=== PATIENT | female | born 1990 | race Caucasian/White ===

== ENCOUNTER → 2016-05-24 | Outpatient (CLI) | payer OTHER ==
[2016-05-23 09:17] LABS: AUTOMATED NEUTROPHIL # 2.5 TH/MM3 (1.8-7.7); BASOPHIL % 0.4 % (0.0-2.0); EOSINOPHIL # 0.1 TH/MM3 (0-0.4); EOSINOPHIL % 1.3 % (0.0-4.0); LYMPH % 42.4 % (9.0-44.0); LYMPHOCYTE # 2.1 TH/MM3 (1.0-4.8); MEAN CELL VOLUME 75.9 FL (80.0-100.0); MEAN CORPUSCULAR HEMOGLOBIN 24.4 PG (27.0-34.0); MEAN CORPUSCULAR HGB CONC 32.2 % (32.0-36.0); NEUT % 48.9 % (16.0-70.0); PLATELET COUNT 219 TH/MM3 (150-450); RED BLOOD COUNT 5.13 MIL/MM3 (4.00-5.30); RED CELL DISTRIBUTION WIDTH 13.3 % (11.6-17.2); WHITE BLOOD COUNT 5.1 TH/MM3 (4.0-11.0)
[2016-05-23 09:18] LABS: HEMO FLAGS AUTO DIFF
[2016-05-23 09:50] LABS: SCAN/DIFF AUTO DIFF CONFIRMED
[2016-05-23 09:54] LABS: BACTERIA, URINE FEW /hpf; BLOOD, URINE NEG (NEG); GLUCOSE,URINE NEG (NEG); KETONE, URINE NEG (NEG); MUCUS URINE FEW /lpf (OCC); NITRITE,URINE NEG (NEG); SQUAMOUS EPITHELIAL CELL URINE 3 /hpf (0-5); URINE COLOR YELLOW (YELLW/STRAW)
[2016-05-23 09:55] LABS: COMMENT (UR) CULT NOT INDICATED; CULTURE IF INDICATED CULT NOT INDICATED
[2016-05-23 10:20] LABS: ANION GAP 5 MEQ/L (5-15); AST (GOT) 10 U/L (15-37); BICARBONATE 26.3 MEQ/L (21.0-32.0); BLOOD UREA NITROGEN 12 MG/DL (7-18); CHLORIDE 108 MEQ/L (98-107); GLOMERULAR FILTRATION RATE 106 ML/MIN (>89); GLUCOSE,FASTING 90 MG/DL (74-99); MAGNESIUM 2.2 MG/DL (1.5-2.5); POTASSIUM 4.1 MEQ/L (3.5-5.1); SODIUM (NA) 139 MEQ/L (136-145)
[2016-05-23 10:46] LABS: ALKALINE PHOSPHATASE 94 U/L (45-117); ALT (GPT) 28 U/L (10-53); FERRITIN 39 NG/ML (8-252); FREE T3 2.79 PG/ML (2.18-3.98); FREE T4 1.22 NG/DL (0.76-1.46); HDL CHOLESTEROL 54.1 MG/DL (40.0-60.0); LDL CHOLESTEROL 72 MG/DL (0-99); TOTAL BILIRUBIN ADULT 0.4 MG/DL (0.2-1.0); TRANSFERRIN IRON PROFILE 305 MG/DL (200-360)
[~2016-05-24] MED LIST: PROT40TA PO; SCOP1PAT2 T-DERMAL; ZOFR4TAB PO
== END ==
LOC: OLAB 05-23 08:06
PROVIDERS: ATTEND Surgery
DX: E66.01 Morbid (severe) obesity due to excess calories (principal)
CPT/HCPCS: 80053; 80061; 81001; 82306; 82607; 82728; 82746; 83540; 83550; 83735; 83970; 84100; 84439; 84443; 84481; 84590; 85025; 87338

== ENCOUNTER → 2016-06-22 | Day surgery (SDC) | payer OTHER ==
[~2016-06-22] MED LIST changes: +LACTATED RINGER'S 1,000 ML BAG IV ONE; +PROPOFOL 500 MG/50 ML BTL IV ONE
== END | disposition home or self-care (01) ==
LOC: ESDC 06:43
PROVIDERS: ATTEND Surgery
DX: K21.9 Gastro-esophageal reflux disease without esophagitis (principal); E66.01 Morbid (severe) obesity due to excess calories; K29.50 Unspecified chronic gastritis without bleeding
CPT/HCPCS: 00740; 43239; 88305; 88312; J3010; J7120

== ENCOUNTER → 2016-07-06 | Outpatient (CLI) | payer OTHER ==
[~2016-07-06] MED LIST changes: -LACTATED RINGER'S 1,000 ML BAG IV ONE; -PROPOFOL 500 MG/50 ML BTL IV ONE
[2016-07-06 11:47] LABS: AUTOMATED NEUTROPHIL # 1.9 TH/MM3 (1.8-7.7); BASOPHIL % 0.3 % (0.0-2.0); EOSINOPHIL # 0.2 TH/MM3 (0-0.4); EOSINOPHIL % 3.3 % (0.0-4.0); HEMATOCRIT 40.1 % (35.0-46.0); LYMPH % 49.4 % (9.0-44.0); LYMPHOCYTE # 2.4 TH/MM3 (1.0-4.8); MEAN CELL VOLUME 75.2 FL (80.0-100.0); MEAN CORPUSCULAR HEMOGLOBIN 24.2 PG (27.0-34.0); MEAN CORPUSCULAR HGB CONC 32.2 % (32.0-36.0); MONO % 6.8 % (0.0-8.0); NEUT % 40.2 % (16.0-70.0); PLATELET COUNT 195 TH/MM3 (150-450); RED BLOOD COUNT 5.33 MIL/MM3 (4.00-5.30); RED CELL DISTRIBUTION WIDTH 14.2 % (11.6-17.2); WHITE BLOOD COUNT 4.8 TH/MM3 (4.0-11.0)
[2016-07-06 11:49] LABS: HEMO FLAGS AUTO DIFF
[2016-07-06 11:53] LABS: PROTHROMBIN TIME - PATIENT 10.8 SEC (9.8-11.6)
[2016-07-06 12:03] LABS: ANION GAP 7 MEQ/L (5-15); BICARBONATE 28.9 MEQ/L (21.0-32.0); BLOOD UREA NITROGEN 14 MG/DL (7-18); CHLORIDE 105 MEQ/L (98-107); GLOMERULAR FILTRATION RATE 103 ML/MIN (>89); POTASSIUM 4.3 MEQ/L (3.5-5.1); SODIUM (NA) 141 MEQ/L (136-145)
[2016-07-06 12:14] LABS: BHCG SCREEN QUALITATIVE LESS THAN 1 MIU/ML (0-5)
[2016-07-06 12:45] LABS: SCAN/DIFF AUTO DIFF CONFIRMED
== END ==
LOC: ELAB 09:23
PROVIDERS: ATTEND Surgery
DX: Z01.818 Encounter for other preprocedural examination (principal)
CPT/HCPCS: 36415; 80048; 84703; 85025; 85610

== ENCOUNTER 2016-07-18 15:06 | Inpatient (IN) | payer OTHER ==
[~2016-07-18] VITALS: Ht 170.2 cm; Wt 137.7 kg
[2016-07-19] MEDS ORDERED: ONDANSETRON HCL 4 MG/2 ML VIAL IV PUSH SCH (06:15)
[2016-07-19] MEDS ORDERED: ceFAZolin 2 GM PREMIX 50 ML IV SCH (06:15)
[2016-07-19] MEDS ORDERED: APREPITANT 40 MG CAP PO SCH (06:15)
[2016-07-19] MEDS ORDERED: metroNIDAZOLE 500 MG INJ 100 ML IV SCH (06:15)
[2016-07-19] MEDS ORDERED: SCOPOLAMINE 1.5 MG PATCH T-DERMAL SCH (06:15)
[2016-07-19] MEDS ORDERED: ACETAMINOPHEN 1000 MG/100 ML VIAL IV SCH (06:15)
[2016-07-19 06:23] VITALS: BP 138/83; PULSE 74; RESP 16; TEMP 98.8; O2SAT 97
[2016-07-19] MEDS ORDERED: METOPROLOL TARTRATE 25 MG TAB PO PRN (06:30)
[2016-07-19] MEDS ORDERED: INSULIN HUMAN REGULAR 1,000 UNITS/10 ML VIAL SQ PRN (06:30)
[2016-07-19] MEDS ORDERED: BUPIVACAINE/EPINEPHRINE 0.25% 50 ML VIAL ONE (07:01)
[2016-07-19] MEDS ORDERED: FAMOTIDINE 20 MG/2 ML VIAL ONE (07:07)
[2016-07-19] MEDS ORDERED: SODIUM CHLORID 0.9% 500 ML IV SCH (07:30)
[2016-07-19] MEDS ORDERED: LACTATED RINGER'S 1000 ML IV SCH (07:30)
[2016-07-19] MEDS ORDERED: METHYLENE BLUE 100 MG/10 ML VIAL OTHER ONE (08:02)
[2016-07-19] MEDS ORDERED: BUPIVACAINE/EPINEPHRINE 0.25% PF 30 ML VIAL INFIL ONE (08:02)
[2016-07-19] MEDS ORDERED: diphenhydrAMINE HCL 50 MG/ML VIAL IV PRN (09:15)
[2016-07-19] MEDS ORDERED: ACETAMINOPHEN 1000 MG/100 ML VIAL IV PRN (09:15)
[2016-07-19] MEDS ORDERED: ENALAPRILAT 1.25 MG/ML VIAL IV PUSH PRN (09:15)
[2016-07-19] MEDS ORDERED: ONDANSETRON HCL 4 MG/2 ML VIAL IV PRN (09:15)
[2016-07-19] MEDS ORDERED: NALOXONE HCL 0.4 MG/ML AMP IV PRN (09:15)
[2016-07-19] MEDS ORDERED: diphenhydrAMINE HCL ELIXIR 12.5 MG/5 ML CUP PO PRN (09:15)
[2016-07-19] MEDS ORDERED: MORPHINE SULFATE 30 MG/30 ML PCA IV SCH (09:15)
[2016-07-19] MEDS ORDERED: SODIUM CHLORIDE 0.9% FLUSH 10 ML FLUSH IV FLUSH PRN (09:15)
[2016-07-19] MEDS ORDERED: ACETAMINOPHEN 325MG/HYDROcodone 7.5MG/15ML UDC PO PRN (09:15)
[2016-07-19] MEDS ORDERED: Post-op Orders (for Pharmacy) MISC XX ONE (09:19)
[2016-07-19] MEDS ORDERED: MIDAZOLAM HCL 2 MG/2 ML VIAL ONE (09:22)
[2016-07-19] MEDS ORDERED: fentaNYL CITRATE 250 MCG/5 ML AMP ONE (09:23)
[2016-07-19] MEDS ORDERED: *morphine SULFATE 8 MG/ML PERIprocedure ONLY ONE ×2 (09:37→09:52)
[2016-07-19] MEDS: D5-1/2 NS + KCL 20 MEQ INJ 1,000 ML IV SCH ×4 (10:00→22:14)
[2016-07-19] MEDS ORDERED: *HYDROmorphone PF 1 MG VIAL PERIprocedural Use ONLY ONE (10:12)
[2016-07-19] MEDS ORDERED: LACTATED RINGER'S 1000 ML INJ 1,000 ML IV ONE (10:56)
[2016-07-19] MEDS ORDERED: PROPOFOL 200 MG/20 ML AMP IV ONE (10:56)
[2016-07-19] MEDS ORDERED: NEOSTIGMINE 3 MG/3 ML SYR IV ONE (10:56)
[2016-07-19] MEDS: METOCLOPRAMIDE HCL 10 MG/2 ML VIAL IVS SCH ×3 (11:13→22:13)
[2016-07-19] MEDS: RESP: ALBUTEROL 2.5 MG/3 ML NEB (SCH) INH ×4 (12:00→23:29)
[2016-07-19] MEDS: ENOXAPARIN SODIUM 40 MG/0.4 ML SYRINGE SQ SCH (13:05)
[2016-07-19] MEDS: ONDANSETRON HCL 4 MG/2 ML VIAL IV PRN ×2 (13:59→19:52)
[2016-07-19] MEDS: PCA - TOTAL MG MORPHINE DELIVERED PER SHIFT SCH ×2 (14:00→19:53)
[2016-07-19] MEDS: metroNIDAZOLE 500 MG INJ 100 ML IV SCH ×2 (14:01→22:12)
[2016-07-19 16:00] VITALS: BP 122/72; PULSE 60; RESP 17; TEMP 96; O2SAT 99
[2016-07-19 18:00] VITALS: O2SAT 95
[2016-07-19] MEDS: SODIUM CHLORIDE 0.9% FLUSH 10 ML FLUSH IV FLUSH SCH (19:53)
[2016-07-19 20:00] VITALS: BP 125/84; PULSE 78; RESP 17; TEMP 96.8; O2SAT 97
[2016-07-19 21:08] VITALS: O2SAT 96
[2016-07-19 23:56] VITALS: BP 126/77; PULSE 63; RESP 18; TEMP 97.4; O2SAT 98
[2016-07-20] MEDS: ONDANSETRON HCL 4 MG/2 ML VIAL IV PRN ×5 (02:46→18:30)
[2016-07-20] MEDS: D5-1/2 NS + KCL 20 MEQ INJ 1,000 ML IV SCH ×4 (03:00→16:46)
[2016-07-20] MEDS: RESP: ALBUTEROL 2.5 MG/3 ML NEB (SCH) INH ×6 (03:59→23:17)
[2016-07-20 04:13] VITALS: BP 125/66; PULSE 62; RESP 20; TEMP 97.6; O2SAT 96
[2016-07-20] MEDS: METOCLOPRAMIDE HCL 10 MG/2 ML VIAL IVS SCH (04:39)
[2016-07-20] MEDS: metroNIDAZOLE 500 MG INJ 100 ML IV SCH (04:40)
[2016-07-20] MEDS: PCA - TOTAL MG MORPHINE DELIVERED PER SHIFT SCH ×3 (04:40→21:29)
[2016-07-20 05:34] LABS: AUTOMATED NEUTROPHIL # 6.5 TH/MM3 (1.8-7.7); BASOPHIL % 0.1 % (0.0-2.0); EOSINOPHIL % 0.1 % (0.0-4.0); HEMATOCRIT 35.3 % (35.0-46.0); HEMO FLAGS DIFF FINAL; LYMPH % 18.7 % (9.0-44.0); LYMPHOCYTE # 1.6 TH/MM3 (1.0-4.8); MEAN CELL VOLUME 75.2 FL (80.0-100.0); MEAN CORPUSCULAR HEMOGLOBIN 25.3 PG (27.0-34.0); MEAN CORPUSCULAR HGB CONC 33.6 % (32.0-36.0); MONO % 6.8 % (0.0-8.0); NEUT % 74.3 % (16.0-70.0); PLATELET COUNT 181 TH/MM3 (150-450); RED BLOOD COUNT 4.69 MIL/MM3 (4.00-5.30); RED CELL DISTRIBUTION WIDTH 14.3 % (11.6-17.2); WHITE BLOOD COUNT 8.8 TH/MM3 (4.0-11.0)
[2016-07-20 06:00] LABS: BICARBONATE 24.8 MEQ/L (21.0-32.0); MAGNESIUM 2.4 MG/DL (1.5-2.5)
[2016-07-20 08:00] VITALS: BP 129/78; PULSE 74; RESP 17; TEMP 97.2; O2SAT 97
[2016-07-20] MEDS: PANTOPRAZOLE SODIUM 40 MG VIAL IVP SCH (08:29)
[2016-07-20] MEDS: ACETAMINOPHEN 325MG/HYDROcodone 7.5MG/15ML UDC PO PRN ×2 (08:30→15:23)
[2016-07-20] MEDS: SODIUM CHLORIDE 0.9% FLUSH 10 ML FLUSH IV FLUSH SCH ×2 (08:39→21:00)
[2016-07-20] MEDS: PANTOPRAZOLE SOD 40 MG DELAYED RELEASE TAB PO SCH (08:39)
[2016-07-20 09:23] VITALS: O2SAT 96
[2016-07-20] MEDS: METOCLOPRAMIDE HCL 10 MG/2 ML VIAL IVS PRN ×3 (09:33→21:30)
--- NOTE | 2016-07-20 12:11 | HHI.PR ---
Subjective Subjective Notes 25 yo female POD#1 VSG still complains of increased nausea, though states it has improved since discontinuing IV pain meds Objective Vitals/I&O Vital Signs Date Time Temp Pulse Resp B/P Pulse Ox O2 Delivery O2 Flow Rate FiO2 07/20/16 09:23 96 21 07/20/16 08:00 97.2 74 17 129/78 07/19/16 18:00 Nasal Cannula 07/19/16 13:00 2 Labs Laboratory Tests Test 07/20/16 04:24 White Blood Count 8.8 Red Blood Count 4.69 Hemoglobin 11.9 Hematocrit 35.3 Mean Corpuscular Volume 75.2 Mean Corpuscular Hemoglobin 25.3 Mean Corpuscular Hemoglobin 33.6 Concent Red Cell Distribution Width 14.3 Platelet Count 181 Mean Platelet Volume 9.2 Neutrophils (%) (Auto) 74.3 Lymphocytes (%) (Auto) 18.7 Monocytes (%) (Auto) 6.8 Eosinophils (%) (Auto) 0.1 Basophils (%) (Auto) 0.1 Neutrophils # (Auto) 6.5 Lymphocytes # (Auto) 1.6 Monocytes # (Auto) 0.6 Eosinophils # (Auto) 0.0 Basophils # (Auto) 0.0 CBC Comment DIFF FINAL Differential Comment Sodium Level 140 Potassium Level 4.0 Chloride Level 110 Carbon Dioxide Level 24.8 Anion Gap 5 Blood Urea Nitrogen 5 Creatinine 0.57 Estimat Glomerular Filtration 128 Rate Random Glucose 127 Calcium Level 8.3 Magnesium Level 2.4 Cardiovascular: Regular Lungs: Clear Abdomen: Non-distended, Post-op tenderness, BS normal Extremities: No edema, SCD's on Narrative Exam Surgical incision sites clean and dry with steri strips intact. Mild tenderness to incision located to the right of the umbilicus A/P Problem List: (1) Hypertension (2) Obesity Assessment and Plan Continue to increase fluids as tolerated to goal of 60ml every 30 min Continue with frequent ambulation The exam, history, and the medical decision-making described in the above note were completed with the assistance of the mid-level provider. I reviewed and agree with the findings presented. I attest that I had a [id number] encounter with the patient on the same day, and personally performed and documented my assessment and findings in the medical record. Discharge Planning Plan for discharge this evening if patient can tolerate at least 60ml of fluids every 30 mins. Otherwise discharge home tomorrow. Patient to follow up at the office in 1 week Problem Qualifiers (1) Hypertension: Qualified Code: I10 - Essential hypertension (2) Obesity: Isa Munoz Jul 20, 2016 12:11 Winston Carrasquillo MD Aug 16, 2016 13:17
[2016-07-20] MEDS: ENOXAPARIN SODIUM 40 MG/0.4 ML SYRINGE SQ SCH (12:47)
[2016-07-20 16:00] VITALS: BP 133/77; PULSE 82; RESP 16; TEMP 97.9; O2SAT 96
[2016-07-20 20:00] VITALS: BP 119/58; PULSE 81; RESP 17; TEMP 98.5; O2SAT 96
[2016-07-21] VITALS: BP_SYST 106; BP_SYST 110; BP_DIAS 59; BP_DIAS 60; PULSE 69; PULSE 76; RESP 17; TEMP 98; TEMP 98.1; O2SAT 96; O2SAT 99
[2016-07-21] MEDS: ONDANSETRON HCL 4 MG/2 ML VIAL IV PRN ×2 (02:07→08:14)
[2016-07-21] MEDS: RESP: ALBUTEROL 2.5 MG/3 ML NEB (SCH) INH ×2 (02:48→07:32)
[2016-07-21] MEDS: D5-1/2 NS + KCL 20 MEQ INJ 1,000 ML IV SCH ×3 (03:00→11:00)
[2016-07-21] MEDS: METOCLOPRAMIDE HCL 10 MG/2 ML VIAL IVS PRN ×2 (04:41→10:20)
[2016-07-21] MEDS: PCA - TOTAL MG MORPHINE DELIVERED PER SHIFT SCH (05:11)
[2016-07-21 08:00] VITALS: BP 125/79; PULSE 79; RESP 14; TEMP 99.2; O2SAT 97
[2016-07-21] MEDS: PANTOPRAZOLE SOD 40 MG DELAYED RELEASE TAB PO SCH (08:14)
[2016-07-21] MEDS: SODIUM CHLORIDE 0.9% FLUSH 10 ML FLUSH IV FLUSH SCH (08:14)
[2016-07-21] MEDS: PANTOPRAZOLE SODIUM 40 MG VIAL IVP SCH (08:15)
[2016-07-21 12:00] VITALS: BP 135/94; PULSE 72; RESP 16; TEMP 98.3; O2SAT 95
--- NOTE | 2016-07-21 12:56 | HHI.PR ---
Subjective Subjective Notes 25 yo female POD#2 VSG. Sitting up in bed Feeling better but still has moderate nausea Objective Vitals/I&O Vital Signs Date Time Temp Pulse Resp B/P Pulse Ox O2 Delivery O2 Flow Rate FiO2 07/21/16 12:00 98.3 72 16 135/94 95 07/21/16 08:00 99.2 79 14 125/79 97 07/21/16 05:11 14 07/21/16 00:00 98.0 76 17 110/60 96 07/21/16 00:00 98.1 69 17 106/59 99 07/20/16 21:29 16 07/20/16 20:00 98.5 81 17 119/58 96 07/20/16 16:00 97.9 82 16 133/77 96 Vital Signs Date Time Temp Pulse Resp B/P Pulse Ox O2 Delivery O2 Flow Rate FiO2 07/21/16 12:00 98.3 72 16 135/94 95 07/20/16 09:23 21 07/19/16 18:00 Nasal Cannula 07/19/16 13:00 2 Labs Vital Signs, 24 Hour Date Time Temp Pulse Resp B/P Pulse Ox O2 Delivery O2 Flow Rate FiO2 07/21/16 12:00 98.3 72 16 135/94 95 07/21/16 08:00 99.2 79 14 125/79 97 07/21/16 05:11 14 07/21/16 00:00 98.0 76 17 110/60 96 07/21/16 00:00 98.1 69 17 106/59 99 07/20/16 21:29 16 07/20/16 20:00 98.5 81 17 119/58 96 07/20/16 16:00 97.9 82 16 133/77 96 Allergies Coded Allergies No Known Allergies (Verified07/19/16) Intake/Outtake 07/21/16 07/21/16 11:00 23:00 Intake Total 814 ml Output Total 800 ml Balance 14 ml Orders-Isa Munoz Procedure Category Date Status Time Attending Discharge DISCHARGE 07/20/16 Transmitted Order Active Scripts Active No Active Prescriptions or Reported Medications Cardiovascular: Regular Lungs: Clear Abdomen: Non-distended, Post-op tenderness, BS normal Extremities: Perfused Narrative Exam Surgical incision sites clean and dry with steri strips intact. Mild tenderness to incision located to the right of the umbilicus, improving Wound Wound : Wound Location: Abdomen Appearance: Clean & Dry A/P Problem List: (1) Obesity (2) Hypertension Assessment and Plan Continue with fluids 60ml every 30 min, may increase this weekend as tolerated Continue with frequent ambulation The exam, history, and the medical decision-making described in the above note were completed with the assistance of the mid-level provider. I reviewed and agree with the findings presented. I attest that I had a [id number] encounter with the patient on the same day, and personally performed and documented my assessment and findings in the medical record. Discharge Planning Plan for discharge this evening Patient to follow up at the office in 1 week Problem Qualifiers (1) Obesity: (2) Hypertension: Qualified Code: I10 - Essential hypertension Isa Munoz Jul 21, 2016 12:56 Winston Carrasquillo MD Aug 16, 2016 13:08
[2016-07-21] MEDS ORDERED: SCOP1PAT2 T-DERMAL (12:59)
--- NOTE | 2016-08-07 10:11 | MP ---
cc: WINSTON CARRASQUILLO DATE OF 1990 DATE OF OPERATION 07/19/2016 PREOPERATIVE DIAGNOSES 1. Morbid obesity with BMI of 47. 2. Biliary colic. POSTOPERATIVE DIAGNOSES 1. Morbid obesity with BMI of 47. 2. Biliary colic. PROCEDURE 1. Laparoscopic vertical sleeve gastrectomy over a 36-[place] ViSiGi bougie. 2. Laparoscopic cholecystectomy. SURGEON Winston Carrasquillo MD ANESTHESIA General endotracheal anesthesia. ESTIMATED BLOOD LOSS Scant. FINDINGS Fatty liver, distended gallbladder. SPECIMEN Gallbladder. COMPLICATIONS None. PROCEDURE IN DETAIL The patient was brought to the operating room and placed on the operating table in supine position, bilateral sequential inflation device placed on lower extremities. General anesthesia was instituted. Antibiotics was initiated. The abdomen was prepped and draped sterilely. A point 15-cm distal to the xiphoid in the midline was anesthetized with 0.25% Marcaine with epinephrine. A skin incision was made, 5-mm OptiView port placed under direct vision and pneumoperitoneum created. Under direct vision, three 5-mm left upper quadrant, a 15-mm right upper quadrant, 5-mm right upper quadrant ports placed. Prior to placement of all ports the skin and peritoneum were anesthetized with 0.25% Marcaine with epinephrine. The patient was placed in reverse Trendelenburg position left side up, the Magui-Flex retractor was placed. The left lobe of the liver was retracted. The vasculature along the greater curvature of the stomach was using harmonic scalpel starting a distance 5-cm proximal to the pylorus and carried towards the angle of His. The angle of His was taken down bluntly. Posterior ligamentous attachments were sharply . A 36-[place] ViSiGi bougie was placed at the start of the case, was placed on suction. Division of the stomach started 5 cm proximal to the pylorus and carried towards the angle of His to completely excise approximately 80% of the stomach. This was performed using an Abrams Flex stapler at the pylorus. The first firing was with a black load, followed by a green load and four gold loads. All staple loads were reinforced with SeamGuard. A distance of 2 cm was left from the angle incisura and the staple line and a distance of 1 cm left from the GE junction and the staple line. The pylorus was then occluded, methylene blue tinged saline was instilled. There was no evidence of extravasation. The gastrocolic ligament was then sutured to the posterior leaflet of the SeamGuard using a 2-0 Vicryl suture in a running manner. Bleeding points were controlled with Evicel. The excised stomach was removed from the peritoneal cavity through the 15-mm port site in an Endopouch. Attention was then focused to the gallbladder. The patient was rotated with her right side up. A 5-mm port was placed in the epigastrium under direct vision. The gallbladder was retracted, the infundibulum retracted, Calot's triangle opened. The hepatoduodenal ligament was incised. The cystic artery was identified circumferentially, dissected with a harmonic scalpel and divided. The cystic duct was identified circumferentially dissecting with the harmonic scalpel, ligated with hemoclips and divided between with the harmonic scalpel. The gallbladder was then removed from the liver bed using the harmonic scalpel. The gallbladder was retrieved from the peritoneal cavity in an Endopouch. The fascia at the 15-mm port site was approximated with 0 Vicryl suture. The CO2 was then released, all ports were removed, all skin incisions closed with 4-0 Monocryl. The abdominal wall was cleaned. A sterile dressing was placed. The patient was awakened and taken to the recovery room. Winston Carrasquillo MD JS/SSB /9:21 AM /9:52 AM
== END 2016-07-21 15:28 | disposition home or self-care (01) | DRG 621 ==
LOC: HSDI 07-19 05:48 → N07A 07-19 13:24
PROVIDERS: ADMIT Surgery; ATTEND Surgery
PROC: 0DB64Z3 Excision of Stomach, Percutaneous Endoscopic Approach, Vertical (ICD-10-PCS; principal; 2016-07-19 07:35)
PROC: 0FT44ZZ Resection of Gallbladder, Percutaneous Endoscopic Approach (ICD-10-PCS; 2016-07-19 07:35)
DX: E66.01 Morbid (severe) obesity due to excess calories (principal); E55.9 Vitamin D deficiency, unspecified; I10 Essential (primary) hypertension; Z68.42 Body mass index [BMI] 45.0-49.9, adult; K82.8 Other specified diseases of gallbladder; K21.9 Gastro-esophageal reflux disease without esophagitis; N92.6 Irregular menstruation, unspecified
CPT/HCPCS: 80048; 83735; 85025; 88304; 94150; 94640; C9113; J0131; J0690; J1170; J1650; J2250; J2270; J2405; J2710; J2765; J3010; J3480; J7120; J7613; J8501

== ENCOUNTER 2016-07-26 15:34 | Emergency (ER) | payer OTHER ==
[~2016-07-26] VITALS: Ht 170.2 cm; Wt 130.9 kg
[~2016-07-26 15:34] MED LIST changes: -PROT40TA PO; -ZOFR4TAB PO
[2016-07-26 15:37] VITALS: BP 138/95; PULSE 98; RESP 14; TEMP 98; O2SAT 98
[2016-07-26] MEDS ORDERED: PROT40TA PO (15:57)
[2016-07-26] MEDS ORDERED: ZOFR4TAB PO (15:57)
[2016-07-26] MEDS ORDERED: PILOCARPINE HCL 1% OPHT SOLN 15 ML BTL LEFT EYE ONE (16:00)
--- NOTE | 2016-07-26 16:15 | PD ---
HPI . Dilated left pupil Chief Complaint: Eye Problems/Injury Time Seen by Provider: 15:59 Travel History International Travel<30 days: No Contact w/Intl Traveler<30days: No Traveled to known affect area: No History of Present Illness HPI Patient presents with a dilated left pupil. She noticed it just prior to arrival. Her only other visual complaint is some mild blurred vision. She states that she had a mild headache earlier today that has pretty much resolved. She states that she doesn't believe that she has gotten anything in her eye. She states that she has not taken any unusual medications. There has been no trauma. The patient underwent gastric sleeve procedure week ago. She reports some mild abdominal discomfort related to the surgery. She also reports some nausea which she has been having since the surgery. PFSH Past Medical History Cancer: No Cardiovascular Problems: No Diabetes: No Diminished Hearing: No Endocrine: No Gastrointestinal Disorders: No GERD: Yes Genitourinary: No Hepatitis: No Hiatal Hernia: No Hypertension: Yes Immune Disorder: No Medical other: No Musculoskeletal: No Neurologic: No Psychiatric: No Reproductive: No Respiratory: No Immunizations Current: No Thyroid Disease: No Tetanus Vaccination: < 5 Years Influenza Vaccination: No ?: Not LMP: NOW : 2 Para: 2 Miscarriage: 0 : 0 Past Surgical History Abdominal Surgery: Yes (GASTRIC SLEEVE ) AICD: No Cholecystectomy: Yes Joint Replacement: No Pacemaker: No Social History Alcohol Use: No Tobacco Use: No Substance Use: No Allergies-Medications (Allergen,Severity, Reaction): Coded Allergies: No Known Allergies (Verified , 07/26/16) Reported Meds & Prescriptions Reported Meds & Active Scripts Active Reported Zofran (Ondansetron HCl) 4 Mg Tab 4 Mg PO Q8HR PRN Protonix (Pantoprazole Sodium) 40 Mg Tab 40 Mg PO DAILY Review of Systems Except as stated in HPI: all other systems reviewed are Neg Eyes: Positive: Blurred Vision, Other (dilated left pupil), No: Diploplia, Photophobia, Redness, Foreign Body Sensation, Pain, Tearing HENT: Positive: Headaches (mild and improving spontaneously) Gastrointestinal: No: Nausea, Vomiting Physical Exam Narrative GENERAL: Awake and alert and in no acute distress. SKIN: Warm and dry. HEENT: Left eye is markedly dilated. The left eye does not react to light either directly or consensually. Extraocular movements are intact. CARDIOVASCULAR: Regular rate and rhythm. RESPIRATORY: No accessory muscle use. MUSCULOSKELETAL: No obvious deformities. No edema. NEUROLOGICAL: Awake and alert. No obvious cranial nerve deficits. Motor grossly within normal limits. Normal speech. PSYCHIATRIC: Appropriate mood and affect; insight and judgment normal. Data Data Last Documented VS Vital Signs Date Time Temp Pulse Resp B/P Pulse Ox O2 Delivery O2 Flow Rate FiO2 07/26/16 15:37 98.0 98 14 138/95 98 Room Air Orders Pilocarpine 1% Opth Soln (Isopto Carpine (07/26/16 16:00) [facility] Medical Decision Making Medical Screen Exam Complete: Yes Emergency Medical Condition: Yes Differential Diagnosis Differential diagnosis includes João syndrome, physiologic anisocoria, Adies tonic pupil, pharmacologic anisocoria. Narrative Course Patient presents with a dilated left pupil. Today was consult it. It recommended instilling 1% pilocarpine into the affected eye. If this causes pupillary constriction, she has Adies tonic pupil and no further evaluation is needed. Pilocarpine does cause some constriction of the left pupil. The left pupil actually now appears equal to the right pupil. 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
== END 2016-07-26 18:16 | disposition home or self-care (01) ==
LOC: NEPC 15:34
DX: H57.052 Tonic pupil, left eye (principal); H53.8 Other visual disturbances; R10.9 Unspecified abdominal pain; R11.0 Nausea; I10 Essential (primary) hypertension; Z98.890 Other specified postprocedural states; Z87.19 Personal history of other diseases of the digestive system
CPT/HCPCS: 99283

== ENCOUNTER → 2017-08-10 | Outpatient (CLI) | payer BC ==
[~2017-08-10] MED LIST changes: +PROT40TA PO; -SCOP1PAT2 T-DERMAL; +ZOFR4TAB PO
[2017-08-10 10:48] LABS: HEMATOCRIT 39.8 % (35.0-46.0); HEMOGLOBIN 13.2 GM/DL (11.6-15.3); MEAN CELL VOLUME 80.5 FL (80.0-100.0); MEAN CORPUSCULAR HEMOGLOBIN 26.7 PG (27.0-34.0); MEAN CORPUSCULAR HGB CONC 33.1 % (32.0-36.0); MEAN PLATELET VOLUME 8.7 FL (7.0-11.0); PLATELET COUNT 230 TH/MM3 (150-450); RED BLOOD COUNT 4.95 MIL/MM3 (4.00-5.30); RED CELL DISTRIBUTION WIDTH 13.7 % (11.6-17.2); WHITE BLOOD COUNT 6.5 TH/MM3 (4.0-11.0)
== END ==
LOC: CLAB 10:15
PROVIDERS: ATTEND Obstetrics & Gynecology
DX: D64.9 Anemia, unspecified (principal); O03.4 Incomplete spontaneous abortion without complication
CPT/HCPCS: 36415; 84702; 85027